=== PATIENT | male | born 1950 | race American Indian/Alaskan Native ===

== ENCOUNTER 2017-01-25 10:27 | Inpatient (IN) | payer OTHER ==
[2017-01-25 11:31] LABS: Hematocrit 37.3 % (35.5-45.6); Hemoglobin 12.2 gm/dl (11.8-15.2); Mean Corpuscular HGB Conc 33 % (32-34); Mean Corpuscular Hemoglobin 33 pg (28-32); Mean Corpuscular Volume 100 fl (84-94); Platelet Count 163 K/mm3 (140-440); Red Blood Count 3.73 M/mm3 (3.65-5.03); Red Cell Distribution Width 12.6 % (13.2-15.2); White Blood Count 11.4 K/mm3 (4.5-11.0)
[2017-01-25 11:41] LABS: Albumin 4.1 g/dL (3.9-5); Albumin/Globulin Ratio 1.3 %; Bilirubin,Total 0.8 mg/dL (0.1-1.2); Calcium 9.9 mg/dL (8.4-10.2); Chloride 96.1 mmol/L (98-107); Potassium 4.2 mmol/L (3.6-5.0); Total Protein 7.3 g/dL (6.3-8.2)
[2017-01-25] MEDS ORDERED: APRESOLINE IV ONE (11:52)
[2017-01-25] MEDS ORDERED: NACL 0.9% 1000 ML 1,000 ML IV ONE (11:52)
--- NOTE | 2017-01-25 11:53 | Emergency Department Report ---
ED General Adult HPI - General Chief complaint: Abdominal Pain Stated complaint: LOWER ABDOMINAL PAIN Time Seen by Provider: 01/25/17 11:23 Source: patient, EMS (ems notes not available at time of chart dictation), RN notes reviewed Mode of arrival: Stretcher Limitations: No Limitations - History of Present Illness Initial comments: Primary care Dr.: Dr. Alcaraz Past medical history: Elevated blood pressure/hypertension, BPH. Patient states no history of renal insufficiency. This is a 66-year-old male. He is previously unknown to me. He was brought to the hospital by EMS for urinary retention for 11 hours. Patient had a Dong catheter placed by the nurse using typical sterile technique prior to my evaluation, and had immediate release of 1600 mL of clear yellow urine. Patient reports abdominal discomfort which has since resolved. He denies headache, neck pain, chest pain, denies abdominal pain, denies testicular pain. -: Gradual Location: genitals Consistency: now resolved Improves with: other (symptoms improved with placement of a Dong catheter) Worsens with: other (symptoms worsened when patient attempted to urinate) Associated Symptoms: denies other symptoms - Related Data Home Medications Medication Instructions Recorded Confirmed Last Taken Amlodipine Besylate/Benazepril 1 each PO DAILY 01/25/17 01/25/17 Unknown [Amlodipine-Benazepril 10-20 mg] Labetalol [Normodyne] 200 mg PO BID 01/25/17 01/25/17 Unknown Allergies Allergy/AdvReac Type Severity Reaction Status Date / Time Sulfa (Sulfonamide Allergy Swelling Unverified 05/24/15 08:05 Antibiotics) Tetanus Vaccines & Toxoid Allergy Unknown Verified 01/25/17 11:03 ED Review of Systems ROS: Stated complaint: LOWER ABDOMINAL PAIN Other details as noted in HPI Constitutional: denies: fever Eyes: denies: vision change ENT: denies: epistaxis Respiratory: denies: cough Cardiovascular: denies: chest pain Gastrointestinal: abdominal pain Genitourinary: other (urinary retention) Musculoskeletal: denies: back pain Skin: denies: lesions Neurological: denies: weakness Psychiatric: anxiety ED Past Medical Hx - Past Medical History Previous Medical History?: Yes Hx Hypertension: Yes - Surgical History Past Surgical History?: No - Social History Smoking Status: Never Smoker Substance Use Type: Alcohol - Medications Home Medications: Home Medications Medication Instructions Recorded Confirmed Last Taken Type Amlodipine Besylate/Benazepril 1 each PO DAILY 01/25/17 01/25/17 Unknown History [Amlodipine-Benazepril 10-20 mg] Labetalol [Normodyne] 200 mg PO BID 01/25/17 01/25/17 Unknown History ED Physical Exam - General Limitations: No Limitations General appearance: alert, in no apparent distress - Head Head exam: Present: atraumatic, normocephalic - Eye Eye exam: Present: normal appearance, EOMI. Absent: nystagmus - ENT ENT exam: Present: normal exam, normal orophraynx, mucous membranes moist, normal external ear exam - Neck Neck exam: Present: normal inspection, full ROM. Absent: tenderness, meningismus - Respiratory Respiratory exam: Present: normal lung sounds bilaterally. Absent: respiratory distress, wheezes, rales, rhonchi, stridor, chest wall tenderness - Cardiovascular Cardiovascular Exam: Present: regular rate, normal rhythm, normal heart sounds. Absent: bradycardia, tachycardia, irregular rhythm, systolic murmur, diastolic murmur, rubs, gallop - GI/Abdominal GI/Abdominal exam: Present: soft, normal bowel sounds. Absent: distended, tenderness, guarding, rebound, rigid, pulsatile mass - Rectal Rectal exam: Present: deferred - exam: Present: normal inspection. Absent: testicular tenderness External exam: Present: normal external exam - Extremities Exam Extremities exam: Present: normal inspection, full ROM, normal capillary refill. Absent: tenderness, pedal edema, joint swelling, calf tenderness - Back Exam Back exam: Present: normal inspection, full ROM. Absent: tenderness, CVA tenderness (R), CVA tenderness (L), muscle spasm, paraspinal tenderness, vertebral tenderness - Neurological Exam Neurological exam: Present: alert, oriented X3, other (Extraocular movements intact. Tongue midline. No facial droop. Facial sensation intact to light touch in the V1, V2, V3 distribution bilaterally. 5 and 5 strength in 4 extremities.. Sensation is intact to light touch in 4 extremities.). Absent: motor sensory deficit - Psychiatric Psychiatric exam: Present: normal affect, normal mood - Skin Skin exam: Present: warm, dry, intact, normal color. Absent: rash ED Course Vital Signs 01/25/17 01/25/17 01/25/17 10:46 11:00 11:01 Temperature 98.7 F Pulse Rate 77 Respiratory 18 Rate Blood Pressure 201/79 214/96 Blood Pressure [Right] O2 Sat by Pulse 99 100 99 Oximetry 01/25/17 01/25/17 01/25/17 11:03 12:00 12:20 Temperature Pulse Rate 77 Respiratory 18 Rate Blood Pressure 193/80 214/96 Blood Pressure [Right] O2 Sat by Pulse 100 Oximetry 01/25/17 01/25/17 01/25/17 13:00 14:00 14:23 Temperature Pulse Rate Respiratory Rate Blood Pressure 202/82 204/83 204/83 Blood Pressure [Right] O2 Sat by Pulse 100 100 Oximetry 01/25/17 01/25/17 01/25/17 15:00 15:25 15:30 Temperature Pulse Rate 101 H Respiratory 18 Rate Blood Pressure 204/83 174/66 Blood Pressure 187/80 [Right] O2 Sat by Pulse 100 100 100 Oximetry 01/25/17 01/25/17 01/25/17 15:39 16:00 16:30 Temperature Pulse Rate 101 H Respiratory Rate Blood Pressure 169/76 181/79 Blood Pressure [Right] O2 Sat by Pulse 100 100 Oximetry 01/25/17 01/25/17 01/25/17 17:00 17:30 18:02 Temperature Pulse Rate Respiratory Rate Blood Pressure 174/77 178/73 178/73 Blood Pressure [Right] O2 Sat by Pulse 99 99 Oximetry - Reevaluation(s) Reevaluation #1: 01/25/17 12:06 Differential diagnosis: Obstructive uropathy, postobstructive nephropathy, urinary retention, elevated blood pressure Assessment and plan: 66-year-old male with urinary retention that is resolved by placement of a Dong catheter. He is markedly hypertensive, with evidence of end organ dysfunction in the context of acute kidney injury/failure. The patient indicates no prior history of kidney/renal insufficiency that he is aware of. He will be given IV fluids, hydralazine for blood pressure. A page was placed to contact his primary care doctor to arrange admission. Reevaluation #2: 01/25/17 12:20 case d/w Dr Alcaraz, who accepts the patient to his service. He requests nephrology consult, Dr Mustafa, to follow Reevaluation #3: 01/25/17 12:59 case d/w renal, Dr Jon Recommends urinalysis which has already been performed, and renal/bladder ultrasound. Inpatient team to follow up on ultrasound results. ED Medical Decision Making - Lab Data Result diagrams: 01/25/17 11:09 01/25/17 11:09 Vital Signs 01/25/17 01/25/17 11:01 11:03 Temperature 98.7 F Pulse Rate 77 Respiratory 18 18 Rate Blood Pressure 214/96 O2 Sat by Pulse 99 Oximetry Lab Results 01/25/17 01/25/17 Range/Units 11:09 11:09 WBC 11.4 H (4.5-11.0) K/mm3 RBC 3.73 (3.65-5.03) M/mm3 Hgb 12.2 (11.8-15.2) gm/dl Hct 37.3 (35.5-45.6) % MCV 100 H (84-94) fl MCH 33 H (28-32) pg MCHC 33 (32-34) % RDW 12.6 L (13.2-15.2) % Plt Count 163 (140-440) K/mm3 Sodium 135 L (137-145) mmol/L Potassium 4.2 (3.6-5.0) mmol/L Chloride 96.1 L (98-107) mmol/L Carbon Dioxide 22 (22-30) mmol/L Anion Gap 21 mmol/L BUN 24 H (9-20) mg/dL Creatinine 2.0 H (0.8-1.5) mg/dL Estimated GFR 41 ml/min BUN/Creatinine Ratio 12.00 % Glucose 165 H (75-100) mg/dL Calcium 9.9 (8.4-10.2) mg/dL Total Bilirubin 0.8 (0.1-1.2) mg/dL AST 31 (5-40) units/L ALT 19 (7-56) units/L Alkaline Phosphatase 56 (35-129) units/L Total Protein 7.3 (6.3-8.2) g/dL Albumin 4.1 (3.9-5) g/dL Albumin/Globulin Ratio 1.3 % Lipase 19 (13-60) units/L Critical care attestation.: If time is entered above; I have spent that time in minutes in the direct care of this critically ill patient, excluding procedure time. ED Disposition Clinical Impression: Acute renal failure, Urinary retention, Hypertensive urgency Disposition: OP ADMITTED IP TO THIS HOSP Is pt being admited?: Yes Condition: Good
--- NOTE | 2017-01-25 12:10 | Admit Criteria Form ---
Admission Criteria Documentation: HYPERTENSION Clinical Indications for Admission to Inpatient Care ( Place "X" for any and all applicable criteria): Admission is indicated for ANY ONE of the following(1)(2)(3)(4): [ X]I. Hypertensive emergency, with evidence of acute and progressing target organ disease as indicated by ANY ONE of the following: [ ]a) Hypertensive encephalopathy (eg, confusion, altered mental status) [ ]b) Cerebral infarction [ ]c) Intracranial hemorrhage [ ]d) Myocardial ischemia or infarction [ ]e) Pulmonary edema [ ]f) Aortic dissection [ ]g) Seizure [X ]h) Acute renal insufficiency [ ]i) Papilledema [ ]j) Microangiopathic hemolytic anemia [ ]II. Adrenergic crisis (eg, severe hypertension due to pheochromocytoma crisis, cocaine or amphetamine intoxication, or clonidine withdrawal) [ ]III. Severe hypertension (SBP greater than 180 mmHg or DBP greater than 110 mmHg or greater than the 95th percentile for age, gender, and height in pediatric patients) that cannot be controlled (eg, to SBP less than 160 mmHg and DBP less than 100 mmHg in adults) by treatment with oral medication in emergency department or observation care Extended stay beyond goal length of stay may be needed for(11)(12)(13): [ ]a) Persistent hypertensive encephalopathy [ ]b) Continuation of pulmonary edema [ ]c) Recurring or persistent severe hypertension [ ]d) Target organ damage (eg, angina, stroke, aortic dissection) [ ]e) Associated renal insufficiency The original [employer] content created by [employer] has been revised. The portions of the content which have been revised are identified through the use of italic text or in bold, and [facility] has neither reviewed nor approved the modified material. All other unmodified content is copyright [employer]. Please see references footnoted in the original [facility] edition 2016 Admission Criteria Met: Yes
[2017-01-25 12:34] LABS: Bacteria,Urine 1+ /HPF (Negative); Bilirubin,Urine NEG (Negative); Blood,Urine LG (Negative); Ketones,Urine NEG (Negative); Leukocyte Esterase,Urine NEG (Negative); Mucus,Urine FEW /HPF; Nitrite,Urine NEG (Negative); Urobilinogen,Urine < 2.0 mg/dL (<2.0)
[2017-01-25] MEDS ORDERED: NORMODYNE PO SCH (14:00)
[2017-01-25] MEDS: APRESOLINE IV PRN ×2 (14:23→21:52)
--- NOTE | 2017-01-25 14:51 | History and Physical Report ---
History of Present Illness Date of examination: 01/25/17 Date of admission: 01/25/17 12:21 Chief complaint: Difficulty urinating Shortness of breath Generalized weakness History of present illness: 66-year-old male who presented in the emergency room on account of difficulty urinating ongoing for the past few weeks, patient however stated that during the night he noticed that he was not able to urinate altogether. Patient thereafter developed pain in the lower abdomen with got progressively worse making ambulation difficult, became weak and short of breath and thereafter decided to present in the emergency room. Patient has history of hypertension and previously on medication including benazepril/amlodipine as well as labetalol. Patient stated that he stopped taking all his medications several months ago because he was having some side effects which he was not very clear about. Patient is unable concerned about possible erectile dysfunction from his medication. Patient has had previous history of benign prostate hypertrophy but no documented treatment and not sure if he had been previously evaluated by the urologist. Patient has not been to the office to follow-up in over 9 months and stated that he has been off of his medication for several months. Patient denied any chest pain no fever, denied any hematuria or back pain but no abdominal pain has been getting progressively worse with difficulty with ambulation. Past History Past Medical History: hypertension Social history: Family history: hypertension Medications and Allergies Allergies Allergy/AdvReac Type Severity Reaction Status Date / Time Sulfa (Sulfonamide Allergy Swelling Unverified 05/24/15 08:05 Antibiotics) Tetanus Vaccines & Toxoid Allergy Unknown Verified 01/25/17 11:03 Home Medications Medication Instructions Recorded Confirmed Last Taken Type Amlodipine Besylate/Benazepril 1 each PO DAILY 01/25/17 01/25/17 Unknown History [Amlodipine-Benazepril 10-20 mg] Labetalol [Normodyne] 200 mg PO BID 01/25/17 01/25/17 Unknown History Active Meds: Active Medications Acetaminophen (Tylenol) 650 mg PO Q6H PRN PRN Reason: moderate pain Hydralazine HCl (Apresoline) 10 mg IV Q4H PRN PRN Reason: htn Last Admin: 01/25/17 14:23 Dose: 10 mg Labetalol HCl (Normodyne) 200 mg PO BID ALEXANDER Review of Systems Cardiovascular: palpitations, shortness of breath, high blood pressure Respiratory: dyspnea on exertion Gastrointestinal: abdominal pain Genitourinary Male: dysuria, urinary hesitancy, nocturia, urinary retention Exam - Physical Exam Narrative exam: GENERAL: In mild distress, uncomfortable due to pain in the lower abdomen HEENT: Head examination showed normocephalic. Mildly pale, not jaundiced, and not cyanosed. Mucous membrane is moist, pharynx is clear, no exudates or hemorrhage. Dentition is normal. NECK: Supple. Neck showed good range of motion. There is no adenopathy noted. No jugular venous distention and no thyromegaly. Neck auscultation showed no carotid bruit. CHEST/LUNGS: Good air exchange bilaterally. Clear to auscultation. There is no respiratory distress noted. Chest percussion normal, symmetrical chest movements with no chest wall tenderness. HEART/CARDIOVASCULAR: No murmur. Regular rate and rhythm. S1 and S2 only, no S3 gallop, no S4. ABDOMEN: [Abdomen is soft, nondistended, tenderness in the suprapubic area as well as of the left iliac fossa. No palpable mass liver spleen and kidneys are not enlarged, bowel sound is active no rebound no guarding SKIN: There is no rash. There is no edema. There is no diaphoresis. NEURO: The patient is awake, alert, and oriented. The patient is cooperative. The patient has no focal neurologic deficits. Cranial nerves 2-12 grossly normal, power is 5/5 in all the extremities tested. The patient has normal speech and gait. MUSCULOSKELETAL: There is no tenderness or deformity. There is no limitation range of motion. There is no evidence of acute injury. EXTREMITIES: No pedal edema, no varicose veins, good peripheral pulses symmetrical and bilaterally, no pretibial edema, no finger or toe clubbing. - Constitutional Vitals: Temp Pulse Resp BP Pulse Ox 98.7 F 77 18 204/83 100 01/25/17 11:01 01/25/17 12:20 01/25/17 11:03 01/25/17 14:23 01/25/17 14:00 Results - Labs CBC & Chem 7: 01/25/17 11:09 01/25/17 11:09 Assessment and Plan - Patient Problems (1) Acute renal failure Current Visit: Yes Status: Acute Qualifiers: Acute renal failure type: A Plan to address problem: Acute renal failure secondary to obstructive uropathy, patient now characterized with large urine volume drained. We'll continue to leave Dong catheter in place for now monitor urinary output closely. Urology consultation , nephrology consultation Renal function labs reviewed from the office most recent lab was in May of last year and BUN and creatinine were noted to be within normal range at that time (2) Hypertensive urgency Current Visit: Yes Status: Acute Plan to address problem: We will admit patient to ICU for now for better blood pressure control, may need IV labetalol for better control keeping MAP above 65. Restart patient's blood pressure medication, monitor urinary output as well as renal function. (3) Urinary retention Current Visit: Yes Status: Acute Plan to address problem: Secondary to obstructive uropathy from BPH. Will need urology consultation, the full effect in place for now until evaluated by urologist
[2017-01-25] MEDS: NORVASC PO SCH (15:39)
--- NOTE | 2017-01-25 15:40 | Ultrasound Report ---
ULTRASOUND RENAL INDICATION: Renal failure. COMPARISON: None similar. FINDINGS: Renal sonography demonstrates borderline/slight increased renal cortical echogenicity. Grossly preserved contours. No hydronephrosis. Right kidney measures 10.5 x 4.2 x 5.8 cm with cortical thickness of 1.2 cm. At least 2 left lower renal cortical hypoechoic foci/cysts ranging between 0.8-1.2 cm incidentally noted on images 7 and 8. A small, 0.8 cm right upper renal cortical hypoechoic focus also identified as also a 0.8 cm non-shadowing cortical echogenicity superiorly, image 14. Left kidney estimated at 11.7 x 5.5 x 5 cm with cortical thickness of 1.7 cm. At least 2 interpolar hypoechoic foci/cysts, the smaller approximately 1 cm while the larger, approximately 3.5 x 2.5 cm is partly exophytic, image 25. Urinary bladder demonstrates an indwelling Dong catheter with small amount of urine. CONCLUSION: Mild underlying medical renal disease, bilateral renal cysts and Dong catheter suspected sonographically without acute renal abnormality, as described. Thank you for the opportunity to participate in this patient's care.
--- NOTE | 2017-01-25 16:40 | Event Note ---
Date: 01/25/17 Asked to see for ICU admission Patient's BP is better controlled and at this point does not meet ICU admission criteria A&P: - contact attending physician to downgrade to medical floor
[2017-01-25] MEDS: NORMODYNE PO SCH ×2 (18:02→21:48)
[2017-01-25] MEDS: TYLENOL PO PRN (21:52)
[2017-01-26 07:50] LABS: Basophils % (Auto) 0.5 % (0.0-1.8); Eosinophils % (Auto) 0.5 % (0.0-4.3); Hematocrit 37.2 % (35.5-45.6); Hemoglobin 12.6 gm/dl (11.8-15.2); Mean Corpuscular HGB Conc 34 % (32-34); Mean Corpuscular Hemoglobin 33 pg (28-32); Mean Corpuscular Volume 98 fl (84-94); Platelet Count 162 K/mm3 (140-440); Red Blood Count 3.78 M/mm3 (3.65-5.03); Red Cell Distribution Width 13.1 % (13.2-15.2); White Blood Count 8.3 K/mm3 (4.5-11.0)
[2017-01-26 08:15] LABS: BUN/Creatinine Ratio 13.68; Calcium 10.1 mg/dL (8.4-10.2); Chloride 107.3 mmol/L (98-107); Potassium 3.9 mmol/L (3.6-5.0)
[2017-01-26] MEDS: NORMODYNE PO SCH ×2 (10:13→22:00)
[2017-01-26] MEDS: NORVASC PO SCH (10:14)
--- NOTE | 2017-01-26 12:20 | Consultation ---
History of Present Illness - Reason for Consult Consult date: 01/26/17 - History of Present Illness CC- retention Primary care Dr.: Dr. Alcaraz Past medical history: Elevated blood pressure/hypertension, BPH. Patient states no history of renal insufficiency. This is a 66-year-old male. He is previously unknown to me. He was brought to the hospital by EMS for urinary retention for 11 hours. Patient had a Torre catheter placed by the nurse using typical sterile technique prior to my evaluation, and had immediate release of 1600 mL of clear yellow urine. Patient reports abdominal discomfort which has since resolved. He denies headache, neck pain, chest pain, denies abdominal pain, denies testicular pain. A/P BPH retention renal insuff home with torre when stable continue flomax 1qd voiding trial in 1-2 weeks Past History Past Medical History: hypertension Social history: Family history: hypertension Medications and Allergies Allergies Allergy/AdvReac Type Severity Reaction Status Date / Time Sulfa (Sulfonamide Allergy Swelling Unverified 05/24/15 08:05 Antibiotics) Tetanus Vaccines & Toxoid Allergy Unknown Verified 01/25/17 11:03 Home Medications Medication Instructions Recorded Confirmed Last Taken Type Amlodipine Besylate/Benazepril 1 each PO DAILY 01/25/17 01/25/17 Unknown History [Amlodipine-Benazepril 10-20 mg] Labetalol [Normodyne] 200 mg PO BID 01/25/17 01/25/17 Unknown History SEROquel 100 mg PO HS 01/25/17 01/25/17 Unknown History Active Meds: Active Medications Acetaminophen (Tylenol) 650 mg PO Q6H PRN PRN Reason: moderate pain Last Admin: 01/25/17 21:52 Dose: 650 mg Amlodipine Besylate (Norvasc) 5 mg PO QDAY [facility] Last Admin: 01/26/17 10:14 Dose: 5 mg Hydralazine HCl (Apresoline) 10 mg IV Q4H PRN PRN Reason: htn Last Admin: 01/25/17 21:52 Dose: 10 mg Labetalol HCl (Normodyne) 200 mg PO BID [facility] Last Admin: 01/26/17 10:13 Dose: 200 mg Exam - Constitutional Vitals: Temp Pulse Resp BP Pulse Ox 97.5 F L 70 18 195/89 97 01/26/17 08:00 01/26/17 08:31 01/26/17 08:31 01/26/17 08:00 01/26/17 08:00 Results - Labs CBC & Chem 7: 01/26/17 07:36 01/26/17 07:36 Labs: Abnormal lab results 01/26/17 01/26/17 Range/Units 07:36 07:36 MCV 98 H (84-94) fl MCH 33 H (28-32) pg RDW 13.1 L (13.2-15.2) % Lymph % (Auto) 10.8 L (13.4-35.0) % Lymph # 0.9 L (1.2-5.4) K/mm3 Seg Neutrophils % 81.5 H (40.0-70.0) % Chloride 107.3 H (98-107) mmol/L Carbon Dioxide 21 L (22-30) mmol/L BUN 26 H (9-20) mg/dL Creatinine 1.9 H (0.8-1.5) mg/dL Glucose 125 H (75-100) mg/dL
--- NOTE | 2017-01-26 12:27 | Progress Note ---
Assessment and Plan - Patient Problems (1) Acute renal failure Current Visit: Yes Status: Acute Qualifiers: Acute renal failure type: A Plan to address problem: Continue cautious hydration, awaiting nephrology evaluation. Continue to monitor urinary output and BUN and creatinine level (2) Hypertensive urgency Current Visit: Yes Status: Acute Plan to address problem: Improving blood pressure the systolic blood pressures that are still elevated will continue to adjust current medication (3) Urinary retention Current Visit: Yes Status: Acute Plan to address problem: Neurology evaluation noted, with plans to maintain Dong in place for the next 2 weeks and outpatient follow-up with urologist thereafter. Subjective Date of service: 01/26/17 Principal diagnosis: acute renal failure, postobstructive uropathy, benign prostatic hypertrophy Interval history: No new complaints besides ongoing lower abdominal discomfort and generalized weakness. No fever reported by nursing staff no chest pain and no shortness of breath reported. Patient inquiring about ongoing plan of treatment. Blood pressure reported still running fairly high Objective - Exam Narrative Exam: GENERAL: [] HEENT: [Patient is not pale, not jaundiced, not cyanosed.] NECK: [No JVD, no thyroid enlargement and no lymphadenopathy.] CHEST/LUNGS: [Good air exchange bilaterally, no wheeze, no rales and no rhonchi. ] [No chest wall tenderness, percussion is normal, symmetrical chest wall.] HEART/CARDIOVASCULAR: [Regular rate and rhythm, S1 and S2 only, no murmur.] ABDOMEN: [Abdomen is soft, nondistended, no guarding, no rebound tenderness, no masses palpable per abdomen, active bowel sounds.] SKIN: [Warm and dry, no rash.] NEURO: [Awake, alert, oriented x3, speech normal. Power 5/5 in all the extremities.] EXTREMITIES: [No pedal edema, good peripheral pulses, no finger or toe clubbing. ] - Constitutional Vitals: Vital Signs - 12hr 01/26/17 01/26/17 01/26/17 04:00 08:00 08:31 Temperature 98.2 F 97.5 F L Pulse Rate [ 84 70 From Monitor] Pulse Rate [ 76 Right Radial] Respiratory 18 18 18 Rate Blood Pressure 156/70 195/89 [Right Arm] O2 Sat by Pulse 98 97 Oximetry - Labs CBC & Chem 7: 01/26/17 07:36 01/26/17 07:36 Labs: Abnormal lab results 01/26/17 01/26/17 Range/Units 07:36 07:36 MCV 98 H (84-94) fl MCH 33 H (28-32) pg RDW 13.1 L (13.2-15.2) % Lymph % (Auto) 10.8 L (13.4-35.0) % Lymph # 0.9 L (1.2-5.4) K/mm3 Seg Neutrophils % 81.5 H (40.0-70.0) % Chloride 107.3 H (98-107) mmol/L Carbon Dioxide 21 L (22-30) mmol/L BUN 26 H (9-20) mg/dL Creatinine 1.9 H (0.8-1.5) mg/dL Glucose 125 H (75-100) mg/dL
[2017-01-26] MEDS: TYLENOL PO PRN (13:44)
[2017-01-26] MEDS ORDERED: FLOMAX PO ONE (14:00)
[2017-01-26] MEDS: APRESOLINE IV PRN (14:02)
--- NOTE | 2017-01-26 15:11 | Consultation ---
History of Present Illness - Reason for Consult Consult date: 01/26/17 acute renal failure Requesting physician: ROSALVA GONZALEZ - History of Present Illness 66-year-old male who is not known to me with a history of hypertension and benign prostatic hyperplasia. Patient has not been following with his primary care physician regularly and has been off of his medications for at least 9 months. He presented on account of difficulty passing urine and lower abdominal pain. No nausea vomiting he has been feeling weak. He is a poor historian. Past History Past Medical History: hypertension, other (benign prostatic hyperplasia) Past Surgical History: No surgical history Social history: , Lives alone, other (Patient has a PhD in Psych.) Family history: no significant family history, cancer (Cousin of liver cancer), hypertension Medications and Allergies Allergies Allergy/AdvReac Type Severity Reaction Status Date / Time Sulfa (Sulfonamide Allergy Swelling Unverified 05/24/15 08:05 Antibiotics) Tetanus Vaccines & Toxoid Allergy Unknown Verified 01/25/17 11:03 Home Medications Medication Instructions Recorded Confirmed Last Taken Type Amlodipine Besylate/Benazepril 1 each PO DAILY 01/25/17 01/25/17 Unknown History [Amlodipine-Benazepril 10-20 mg] Labetalol [Normodyne] 200 mg PO BID 01/25/17 01/25/17 Unknown History SEROquel 100 mg PO HS 01/25/17 01/25/17 Unknown History Active Meds: Active Medications Acetaminophen (Tylenol) 650 mg PO Q6H PRN PRN Reason: moderate pain Last Admin: 01/26/17 13:44 Dose: 650 mg Amlodipine Besylate (Norvasc) 10 mg PO QDAY ALEXANDER Hydralazine HCl (Apresoline) 10 mg IV Q4H PRN PRN Reason: htn Last Admin: 01/26/17 14:02 Dose: 10 mg Hydralazine HCl (Apresoline) 25 mg PO Q8HR ALEXANDER Labetalol HCl (Normodyne) 200 mg PO BID ALEXANDER Tamsulosin HCl (Flomax) 0.4 mg PO QDAY ALEXANDER Review of Systems All systems: negative (Constitutional: no fever or chills. No anorexia or weight loss. HEENT: No sore throat or sinus drainage no hearing or vision impairment . Cardiovascular: No chest pain, shortness of breath, palpitations, lower extremity swelling or dizziness. Respiratory: No cough, sputum, shortness of breath, hemoptysis or wheezing. Gastrointestinal: No nausea, vomiting, diarrhea, abdominal pain, hematemesis or melena. Genitourinary: Had urinary retention on presentation which has resolved. Dong catheter intact. No frequency urgency dysuria or hematuria. hematologic: No abnormal bleeding or bruising. Integumentary: no pruritus or rash. Neurological: No headache no focal weakness or numbness, no syncope or seizures. Musculoskeletal: No joint pains no stiffness. Psychiatry: no anxiety or depression) Exam - Vital Signs Vital signs: Vital Signs Pulse Ox 99 01/25/17 10:46 - Physical Exam Narrative exam: Middle-aged -Ira[place] female lying in bed in no acute distress HEENT normocephalic atraumatic, pupils equal reactive to light, pink, clear oropharynx Neck supple, no thyromegaly no jugular venous distention CVS S1-S2 regular rate rhythm without murmur, rub or gallop Chest clear to auscultation Abdomen soft nondistended nontender no organomegaly no bruit bowel sounds present Extremities no edema no cyanosis or clubbing Neuro awake, alert oriented x3 no gross deficit Results - Lab Results 01/26/17 07:36 01/26/17 07:36 Most recent lab results Calcium 10.1 mg/dL (8.4-10.2) 01/26/17 07:36 Assessment and Plan - Patient Problems (1) Acute kidney injury superimposed on chronic kidney disease Current Visit: Yes Status: Acute Plan to address problem: Hematuria and proteinuria definitely concerned about chronic glomerulonephritis. Follow-up serologies. Quantify proteinuria. Follow up electrolytes and renal function (2) Hypertensive urgency Current Visit: Yes Status: Acute Plan to address problem: Blood pressure is improving but still suboptimal. Adjust medications and follow up blood pressure (3) Urinary retention Current Visit: Yes Status: Acute Plan to address problem: Patient has an indwelling Dong catheter now. Has been started on Flomax. Urology is following (4) Psychiatric disorder Current Visit: Yes Status: Acute Plan to address problem: May need Psychiatric consult
--- NOTE | 2017-01-26 15:59 | Consultation ---
REASON FOR CONSULTATION: Urinary retention. REQUESTING PHYSICIAN: Srinivas Alcaraz MD HISTORY OF PRESENT ILLNESS: This patient is a 66-year-old gentleman brought to the Emergency Room by EMS with a history of inability to urinate for 11 hours. Dong catheter was placed, 1600 urine returned, primitivo colored. The patient does have a history of some prostatism with frequency and urgency, but has not been treated. ALLERGIES: Has as an allergy to sulfa and tetanus. PAST MEDICAL HISTORY: Hypertension. PAST SURGICAL HISTORY: None. MEDICATIONS: He is on amlodipine and benazepril 10/20 combination and labetalol. PHYSICAL EXAMINATION: GENERAL: He is alert and oriented. VITAL SIGNS: Temperature 98.7, respirations 18, pulse 77, BP 214/96. BACK: No CVA tenderness. ABDOMEN: Soft. GENITOURINARY: Normal phallus, draining primitivo colored urine. LABORATORY DATA: BUN and creatinine of 24 and 2.0 respectively. Hemoglobin and hematocrit of 11 and 37 respectively, white count 11,000, platelets 163,000. Renal ultrasound, mild medical renal disease bilaterally, bilateral cysts. No hydronephrosis. Dong in good position. ASSESSMENT: Benign prostatic hypertrophy, urinary retention, hypertension. PLAN: Start Flomax. From a Urology standpoint, the patient can go home with a Dong catheter, office voiding trial in 1-2 weeks. JOB# [id number] [facility]
[2017-01-26] MEDS: APRESOLINE PO SCH (22:05)
[2017-01-27 05:10] LABS: BUN/Creatinine Ratio 15.88; Chloride 105.2 mmol/L (98-107); Magnesium 2.2 mg/dL (1.7-2.3); Phosphorous 2.7 mg/dL (2.5-4.5)
[2017-01-27] MEDS: APRESOLINE PO SCH ×2 (06:25→14:12)
[2017-01-27] MEDS ORDERED: NORVASC PO SCH (10:00)
[2017-01-27] MEDS ORDERED: FLOMAX PO SCH (10:00)
[2017-01-27] MEDS: NORMODYNE PO SCH (10:11)
[2017-01-27] MEDS: TYLENOL PO PRN (12:54)
--- NOTE | 2017-01-27 13:00 | Discharge Summary ---
Providers - Providers Date of Admission: 01/25/17 12:21 Date of discharge: 01/27/17 Attending physician: ROSALVA GONZALEZ 01/25/17 13:12 Consult to Physician [CONS] Urgent Consulting Provider: HECTOR DOMINGUEZ Reason For Exam: post-uropathy obstruction Place consult to:: dr. dominguez Notified:: n Primary care physician: [employer] Hospitalization Reason for admission: Urinary retention ,Abdominal pain Condition: Good Hospital course: 66 year old male who presented to the ER with abdominal pain and inability to pass urine ,patient's blood pressure was also elevated and medication due to discontinuation of his medications for several months prior to presentation .Initial labs showed patient was in acute renal failure . Patient was evaluated and had a Dong catheter inserted to drain 1600 mls of urine and Dong catheter left in place .Patient was evaluated by the urologist Dr Dominguez who advised to keep Dong catheter in place for the next two weeks . Patient was also evaluated by Dr Mustafa Classification Analyst who is evaluating patient for ongoing proteinuria as well as Hematuria . Patient's blood pressure was restarted and now being adjusted for more effective control. Patient now stable with improved blood pressure and renal function showed slight improvement in Bun and Creatinine . Patient is being discharged to followup with Classification Analyst and Urologist and with us in the office in three weeks . Patient was also advised to continue his medication . Disposition: DISCHARGED TO HOME OR SELFCARE - Discharge Diagnoses (1) Acute renal failure Status: Acute Qualifiers: Acute renal failure type: A (2) Hypertensive urgency Status: Acute (3) Urinary retention Status: Acute Core Measure Documentation - Palliative Care Palliative Care/ Comfort Measures: Not Applicable - Core Measures Any of the following diagnoses?: none Exam - Physical Exam Narrative exam: GENERAL: [] HEENT: [Patient is not pale, not jaundiced, not cyanosed.] NECK: [No JVD, no thyroid enlargement and no lymphadenopathy.] CHEST/LUNGS: [Good air exchange bilaterally, no wheeze, no rales and no rhonchi. ] [No chest wall tenderness, percussion is normal, symmetrical chest wall.] HEART/CARDIOVASCULAR: [Regular rate and rhythm, S1 and S2 only, no murmur.] ABDOMEN: [Abdomen is soft, nondistended, no guarding, no rebound tenderness, no masses palpable per abdomen, active bowel sounds.] SKIN: [Warm and dry, no rash.] NEURO: [Awake, alert, oriented x3, speech normal. Power 5/5 in all the extremities.] EXTREMITIES: [No pedal edema, good peripheral pulses, no finger or toe clubbing. ] - Constitutional Vitals: Temp Pulse Resp BP Pulse Ox 98.0 F 90 20 175/78 96 01/27/17 07:53 01/27/17 10:11 01/27/17 07:53 01/27/17 10:11 01/27/17 07:53 Plan Activity: no restrictions Weight Bearing Status: Full Weight Bearing Diet: low salt Follow up with: PRIMARY CARE, [Primary Care Provider] - 3-5 Days HECTOR DOMINGUEZ MD [Staff Physician] - 7 Days TONY MUSTAFA MD [Staff Physician] - 7 Days Forms: Work/School Release Form(ED) Prescriptions: amLODIPine [Norvasc] 10 mg PO QDAY #30 tablet Labetalol [Normodyne TAB] 200 mg PO BID 30 Days Tamsulosin [Flomax] 0.4 mg PO QDAY #30 capsule
--- NOTE | 2017-01-27 14:30 | Progress Note ---
Assessment and Plan - Patient Problems (1) Acute kidney injury superimposed on chronic kidney disease Current Visit: Yes Status: Acute Plan to address problem: Hematuria and proteinuria definitely concerned about chronic glomerulonephritis. Kidney function improving. Follow-up serologies. Quantify proteinuria. Follow up electrolytes and renal function. Patient can be followed up as an outpatient. Agree with discharge plan. Discuss with primary attending (2) Hypertensive urgency Current Visit: Yes Status: Acute Plan to address problem: Blood pressure is improving. Follow-up blood pressure as an outpatient (3) Urinary retention Current Visit: Yes Status: Acute Plan to address problem: Patient has an indwelling Dong catheter now. He is going to be getting a leg bag. Has been started on Flomax. Urology is following. He will follow-up with urology as an outpatient (4) Psychiatric disorder Current Visit: Yes Status: Acute Plan to address problem: Psychiatric consult as an outpatient. Discussed with primary attending Subjective Date of service: 01/27/17 Principal diagnosis: acute renal failure, postobstructive uropathy, benign prostatic hypertrophy Interval history: Patient seen sitting on the chair. He has no complaints other than discomfort from the Dong catheter. He denies any chest pain, shortness of breath, nausea or vomiting. Objective - Exam Narrative Exam: Middle-aged -[place] female lying in bed in no acute distress HEENT normocephalic atraumatic, pupils equal reactive to light, pink, clear oropharynx Neck supple, no thyromegaly no jugular venous distention CVS S1-S2 regular rate rhythm without murmur, rub or gallop Chest clear to auscultation Abdomen soft nondistended nontender no organomegaly no bruit bowel sounds present Extremities no edema no cyanosis or clubbing Neuro awake, alert oriented x3 no gross deficit - Vital Signs Vital signs: Vital Signs - 12hr 01/27/17 01/27/17 01/27/17 04:00 07:53 10:10 Temperature 98.0 F 98.0 F Pulse Rate 90 Pulse Rate [ 72 90 From Monitor] Respiratory 18 20 Rate Blood Pressure 175/78 Blood Pressure 180/79 175/78 [Left Arm] O2 Sat by Pulse 98 96 Oximetry 01/27/17 01/27/17 01/27/17 10:11 12:07 14:12 Temperature 98.8 F Pulse Rate 90 69 Pulse Rate [ 72 From Monitor] Respiratory 20 Rate Blood Pressure 175/78 175/84 Blood Pressure 175/81 [Left Arm] O2 Sat by Pulse 96 Oximetry - Lab 01/26/17 07:36 01/27/17 03:59 Most recent lab results Calcium 10.0 mg/dL (8.4-10.2) 01/27/17 03:59 Phosphorus 2.7 mg/dL (2.5-4.5) 01/27/17 03:59 Magnesium 2.2 mg/dL (1.7-2.3) 01/27/17 03:59
[2017-01-27 16:28] VITALS: BP 165/77
== END 2017-01-27 19:16 | disposition home or self-care (01) | DRG 726 ==
LOC: ED 10:27 → 3A 12:21 → CC1 13:14 → 4A 18:20
PROVIDERS: ADMIT Internal Medicine; ATTEND Internal Medicine
DX: N40.1 Benign prostatic hyperplasia with lower urinary tract symptoms (principal); N17.9 Acute kidney failure, unspecified; N13.9 Obstructive and reflux uropathy, unspecified; I16.0 Hypertensive urgency; R33.9 Retention of urine, unspecified; Z60.2 Problems related to living alone; I12.9 Hypertensive chronic kidney disease with stage 1 through stage 4 chronic kidney disease, or unspecified chronic kidney disease; N18.9 Chronic kidney disease, unspecified; Z88.2 Allergy status to sulfonamides; Z88.7 Allergy status to serum and vaccine; Z82.49 Family history of ischemic heart disease and other diseases of the circulatory system
CPT/HCPCS: 36415; 76770; 80048; 80053; 81001; 83690; 83735; 84100; 85025; 85027; 87086; 96361; 96374; J0360; J7030